=== PATIENT | male | born 1965 | race Caucasian/White ===

== ENCOUNTER 2022-11-14 09:24 | Outpatient (CLI) | payer BC | END 2022-11-14 09:25 | disposition home or self-care (01) | LOC: CSHRAD 09:24 | PROVIDERS: ATTEND Internal Medicine Rheumatology | DX: M45.8 Ankylosing spondylitis sacral and sacrococcygeal region (principal); M65.9 Synovitis and tenosynovitis, unspecified; M19.072 Primary osteoarthritis, left ankle and foot | CPT/HCPCS: 72202 ==